=== PATIENT | female | born 1980 | race Hispanic/Latino ===

== ENCOUNTER 2022-06-19 09:04 | Day surgery (SDC) | payer SELFPAY ==
[2022-06-19] MEDS ORDERED: Acetaminophen 500 MG TAB ONE (09:29)
[2022-06-19] MEDS ORDERED: Acetaminophen 500 MG TAB PO SCH (09:30)
[2022-06-19] MEDS ORDERED: Iron Sucrose Complex 500 MG in Sodium Chloride 0.9% 250 ML 250 ML IVPB SCH (09:30)
== END 2022-06-19 14:05 | disposition home or self-care (01) ==
LOC: CSHSDC/OP 09:04
PROVIDERS: ATTEND Family Medicine
DX: O99.019 Anemia complicating pregnancy, unspecified trimester (principal); D64.9 Anemia, unspecified
CPT/HCPCS: J1756; J7050

== ENCOUNTER 2022-07-04 16:51 | Inpatient (IN) | payer MEDICAID, SELFPAY ==
[2022-07-04] MEDS ORDERED: Diphenoxylate HCl/Atropine Tablet PO PRN (17:09)
[2022-07-04] MEDS ORDERED: Methylergonovine 0.2 MG/ML VIAL IM PRN (17:09)
[2022-07-04] MEDS ORDERED: Misoprostol 200 MCG TAB PR PRN (17:09)
[2022-07-04] MEDS ORDERED: Lorazepam 2 MG/ML VIAL SLOW IVP PRN (17:09)
[2022-07-04] MEDS ORDERED: Ondansetron PF 4 MG/2 ML Vial IVP PRN (17:09)
[2022-07-04] MEDS ORDERED: Promethazine HCl 25 MG/ML VIAL IM PRN (17:09)
[2022-07-04] MEDS ORDERED: Carboprost 250 MCG/ML AMP IM PRN (17:09)
[2022-07-04] MEDS ORDERED: hydrALAZINE 20 MG/ML VIAL SLOW IVP PRN ×2 (17:09→17:15)
[2022-07-04] MEDS ORDERED: Famotidine/PF 20 mg/2ml Vial SLOW IVP PRN (17:09)
[2022-07-04] MEDS ORDERED: Calcium Gluc 4.6 MEQ/10 ML (100 MG/ML) SLOW IVP PRN (17:09)
[2022-07-04] MEDS ORDERED: Bicitra 30 ML UDCUP PO PRN (17:09)
[2022-07-04] MEDS ORDERED: Tranexamic Acid 1,000 MG in Sodium Chloride 0.9% 250 ML 250 ML IVPB PRN (17:09)
[2022-07-04] MEDS ORDERED: Labetalol HCl 100 MG/20 ML VIAL SLOW IVP PRN (17:15)
[2022-07-04] MEDS ORDERED: NS w/ Oxytocin 30 units 500 ML IV SCH (17:15)
[2022-07-04] MEDS ORDERED: Magnesium Sulfate 20 gm/500 ml 20 GM/500 ML BAG IVPB SCH (17:15)
[2022-07-04] MEDS ORDERED: Lactated Ringer's 1,000 ML IV SCH (17:15)
[2022-07-04] MEDS ORDERED: CEFAZOLIN 2 GM in Sodium Chloride 0.9% 100 ML IVPB SCH (17:15)
[2022-07-04] MEDS ORDERED: Tranexamic Acid 1,000 MG/10 ML VIAL IVP PRN (17:24)
[2022-07-04] MEDS ORDERED: Magnesium Sulfate 20 gm/500 ml 20 GM/500 ML BAG ONE (17:59)
[2022-07-04] MEDS ORDERED: hydrALAZINE 20 MG/ML VIAL ONE (18:00)
[2022-07-04 18:10] VITALS: BMI 37.9
[2022-07-04 19:12] LABS: #Monocytes 0.4 10x3/uL (0.0-1.1); #Neutrophils 5.6 10x3/uL (1.5-8.4); %Basophils 0.4 % (0.0-2.0); %Eosinophils 0.5 % (0.0-6.0); %Lymphocytes 18.6 % (18.0-47.0); %Monocytes 5.9 % (0.0-10.0); %Neutrophils 74.5 % (40.0-75.0); Hemoglobin 11.1 g/dL (12.0-15.5); Mean Corpuscular HGB CONC 32.6 g/dL (32.0-36.0); Mean Corpuscular Hemoglobin 28.6 pg (27.0-33.0); Mean Corpuscular Volume 87.6 fl (81.6-98.3); Mean Platelet Volume 12.8 fl (7.4-10.4); Platelet Count 225 10x3/uL (150-450); RBC Distribution Width 16.8 % (11.5-14.5); Red Blood Cell (RBC) Count 3.88 10x6/uL (3.90-5.03); White Blood Cell (WBC) Count 7.5 10x3/uL (3.5-10.5)
[2022-07-04 19:26] LABS: ALT (SGPT) 9 U/L (8-55); AST (SGOT) 17 U/L (5-34); Albumin 3.6 g/dL (3.5-5.0); Alkaline Phosphatase 107 U/L (40-110); Anion Gap 17 mmol/L (10-20); BUN (Urea Nitrogen) 8 mg/dL (7.0-18.7); Bilirubin, Total 0.4 mg/dL (0.2-1.2); Calc. Creatinine Clearance 210 mL/min (70-130); Calcium 8.9 mg/dL (7.8-10.44); Carbon Dioxide 21 mmol/L (22-29); Chloride 105 mmol/L (98-107); Estimated GFR 118; Globulin 3.5 g/dL (2.4-3.5); Glucose 77 mg/dL (70-105); Potassium 3.6 mmol/L (3.5-5.1); Protein, Total 7.1 g/dL (6.0-8.3); Sodium 139 mmol/L (136-145)
[2022-07-04 19:44] LABS: HBSAg Index 0.21 S/CO (0-0.99); Hep B Surf Ag Non-Reactive S/CO (NonReactive)
[2022-07-04 19:45] LABS: Syphilis Antibody Nonreactive (Nonreactive); Syphilis Antibody Index 0.08 S/CO (<1.00 Non-Reactive)
[2022-07-04] MEDS ORDERED: PHENYLEPHRINE-NS 100 MCG/ML 10 ML SYRINGE ONE (20:06)
[2022-07-04] MEDS ORDERED: Ondansetron PF 4 MG/2 ML Vial ONE (20:06)
[2022-07-04] MEDS ORDERED: Oxytocin 10 UNITS/ML VIAL ONE (20:06)
[2022-07-04] MEDS ORDERED: Morphine PF 10 MG/10 ML VIAL ONE (20:06)
[2022-07-04] MEDS ORDERED: Dexamethasone 4 mg/ml Vial ONE (20:06)
[2022-07-04] MEDS ORDERED: Phenylephrine 40 MG/NS 250 ML 250 ML ONE (20:36)
[2022-07-04] MEDS ORDERED: Ketorolac Tromethamine 30 MG/ML VIAL ONE (20:56)
[2022-07-04 21:24] LABS: pH (Cord, venous) 7.344 (7.250-7.350)
[2022-07-05] MEDS ORDERED: Lanolin Ointment 7 GM TUBE TOP PRN (08:24)
[2022-07-05] MEDS ORDERED: Magnesium Sulfate 20 gm/500 ml 20 GM/500 ML BAG IVPB SCH (08:24)
[2022-07-05] MEDS ORDERED: Lorazepam 2 MG/ML VIAL SLOW IVP PRN (08:24)
[2022-07-05] MEDS ORDERED: Simethicone Chewable 80 MG TAB PO PRN (08:24)
[2022-07-05] MEDS ORDERED: hydrALAZINE 20 MG/ML VIAL SLOW IVP PRN (08:24)
[2022-07-05] MEDS ORDERED: Calcium Gluc 4.6 MEQ/10 ML (100 MG/ML) SLOW IVP PRN (08:24)
[2022-07-05] MEDS ORDERED: Magnesium Sulfate 20 gm/500 ml 4 GM/100 ML BAG IVPB SCH (08:45)
[2022-07-05] MEDS: Ibuprofen 800 MG TAB PO SCH ×2 (12:59→21:05)
[2022-07-05] MEDS: HYDROcodone/Acetaminophen 5/325 mg Tablet PO PRN (19:24)
[2022-07-05] MEDS: Ferrous Sulfate 325 MG TAB PO SCH (20:30)
[2022-07-05] MEDS: Docusate 100 MG CAP PO SCH (21:05)
[2022-07-06] MEDS: Ibuprofen 800 MG TAB PO SCH ×3 (05:07→21:31)
[2022-07-06 05:19] LABS: Hemoglobin 9.2 g/dL (12.0-15.5); Mean Corpuscular HGB CONC 32.3 g/dL (32.0-36.0); Mean Corpuscular Hemoglobin 28.4 pg (27.0-33.0); Mean Platelet Volume 11.7 fl (7.4-10.4); Platelet Count 199 10x3/uL (150-450); RBC Distribution Width 16.8 % (11.5-14.5); Red Blood Cell (RBC) Count 3.24 10x6/uL (3.90-5.03)
[2022-07-06] MEDS ORDERED: Boostrix 0.5 ML (Tdap) VIAL (>/=7 yrs of age) IM ONE (08:24)
[2022-07-06] MEDS: Docusate 100 MG CAP PO SCH ×3 (08:40→21:31)
[2022-07-06] MEDS: Ferrous Sulfate 325 MG TAB PO SCH ×3 (08:40→21:31)
[2022-07-06] MEDS: Prenatal Vitamin 1 TAB PO SCH ×2 (08:40→19:07)
[2022-07-06] MEDS: HYDROcodone/Acetaminophen 5/325 mg Tablet PO PRN (16:42)
[2022-07-07] MEDS: Ibuprofen 800 MG TAB PO SCH (05:44)
[2022-07-07 08:00] VITALS: BP 129/59; TEMP 98.6
[2022-07-07] MEDS: Ferrous Sulfate 325 MG TAB PO SCH (08:26)
[2022-07-07] MEDS: Docusate 100 MG CAP PO SCH (08:26)
[2022-07-07] MEDS: Prenatal Vitamin 1 TAB PO SCH (08:26)
[2022-07-07] MEDS: HYDROcodone/Acetaminophen 5/325 mg Tablet PO PRN (10:34)
== END 2022-07-07 12:25 | disposition home or self-care (01) | DRG 787 ==
LOC: CSHLD/OP 16:51 → CSHLD 19:03 → CSHPP 07-05 21:58
PROVIDERS: ADMIT Obstetrics & Gynecology; ATTEND Obstetrics & Gynecology
PROC: 10D00Z1 Extraction of Products of Conception, Low, Open Approach (ICD-10-PCS; principal; 2022-07-05)
DX: O14.14 Severe pre-eclampsia complicating childbirth (principal); D62 Acute posthemorrhagic anemia; O34.211 Maternal care for low transverse scar from previous cesarean delivery; O60.14X0 Preterm labor third trimester with preterm delivery third trimester, not applicable or unspecified; O99.214 Obesity complicating childbirth; E66.9 Obesity, unspecified; O34.03 Maternal care for unspecified congenital malformation of uterus, third trimester; Q51.3 Bicornate uterus; Z3A.36 36 weeks gestation of pregnancy; Z37.0 Single live birth; O99.824 Streptococcus B carrier state complicating childbirth; Z79.899 Other long term (current) drug therapy; O90.81 Anemia of the puerperium
CPT/HCPCS: 36415; 51702; 80053; 82570; 82805; 84156; 85025; 85027; 86780; 86850; 86900; 86901; 87340; 88307; 99285; J0360; J1100; J1885; J2274; J2405; J2590; J3475

== ENCOUNTER 2025-03-15 13:47 | Outpatient (CLI) | payer SELFPAY ==
[2025-03-15 15:08] LABS: BHCG - Serum Negative (NEGATIVE); Pregs Control Background? CLEAR/WHITE (CLR/WHITE); Pregs Control Bar Appear? YES (CONTROL BAR)
[2025-03-15 15:15] LABS: ALT (SGPT) 14 U/L (Less than 34); AST (SGOT) 18 U/L (11-34); Albumin 4.1 g/dL (3.1-4.5); Alkaline Phosphatase 91 U/L (40-110); Anion Gap 10 mmol/L (10-20); BUN (Urea Nitrogen) 14 mg/dL (7.0-18.7); Bilirubin, Direct 0.2 mg/dL (0.1-0.3); Bilirubin, Total 0.5 mg/dL (0.3-1.2); Calc. Creatinine Clearance 0 mL/min (70-130); Calcium 8.9 mg/dL (7.8-10.44); Carbon Dioxide 27 mmol/L (22-29); Chloride 105 mmol/L (98-107); Glucose 108 mg/dL (70-105); Potassium 3.8 mmol/L (3.5-5.1); Sodium 138 mmol/L (136-145)
[2025-03-15 15:34] LABS: #Basophils 0.04 10x3/uL (0.0-0.2); #Eosinophils 0.22 10x3/uL (0.0-0.5); #Monocytes 0.33 10x3/uL (0.0-1.1); #Neutrophils 3.84 10x3/uL (1.5-8.4); %Basophils 0.7 % (0.0-2.0); %Eosinophils 3.6 % (0.0-6.0); %Lymphocytes 27.6 % (18.0-47.0); %Monocytes 5.4 % (0.0-10.0); %Neutrophils 62.4 % (40.0-75.0); Hematocrit 27.7 % (34.9-44.5); Hemoglobin 7.6 g/dL (12.0-15.5); Mean Corpuscular Hemoglobin 19.8 pg (27.0-33.0); Mean Corpuscular Volume 72.3 fL (81.6-98.3); Platelet Count 341 10x3/uL (150-450); Red Blood Cell (RBC) Count 3.83 10x6/uL (3.90-5.03); White Blood Cell (WBC) Count 6.15 10x3/uL (3.5-10.5)
== END 2025-03-15 13:48 | disposition home or self-care (01) ==
LOC: CSHLAB 13:47
PROVIDERS: ATTEND Surgery
DX: Z01.812 Encounter for preprocedural laboratory examination (principal); K81.0 Acute cholecystitis
CPT/HCPCS: 80048; 80076; 84703; 85025

== ENCOUNTER 2025-03-18 07:57 | Day surgery (SDC) | payer OTHER, SELFPAY ==
[2025-03-15 14:34] VITALS: BMI 32.1
[2025-03-18] MEDS ORDERED: PROPOFOL 20 ML ONE (09:27)
[2025-03-18] MEDS ORDERED: Lidocaine 1% PF 5 ML VIAL ONE (09:28)
[2025-03-18] MEDS ORDERED: Rocuronium Bromide 10 MG/ML (10ML VIAL) ONE ×2 (09:28)
[2025-03-18] MEDS ORDERED: CEFAZOLIN 2 GM VIAL ONE (09:32)
[2025-03-18] MEDS ORDERED: Bupivacaine/Epinephrine 0.25% 30 ML VIAL ONE (09:32)
[2025-03-18] MEDS ORDERED: SUGAMMADEX SODIUM 200 MG/2 ML VIAL ONE (10:48)
[2025-03-18] MEDS ORDERED: Ondansetron PF 4 MG/2 ML Vial ONE ×2 (10:48→11:56)
[2025-03-18] MEDS ORDERED: Ketorolac Tromethamine 30 MG (1 mL) VIAL ONE (11:08)
[2025-03-18] MEDS ORDERED: oxyCODONE 5 MG TAB ONE (13:36)
== END 2025-03-18 13:55 | disposition home or self-care (01) ==
LOC: CSHSDC 07:57
PROVIDERS: ATTEND Surgery
PROC: 0FT44ZZ Resection of Gallbladder, Percutaneous Endoscopic Approach (ICD-10-PCS; principal; 2025-03-18)
DX: K80.12 Calculus of gallbladder with acute and chronic cholecystitis without obstruction (principal); Z87.59 Personal history of other complications of pregnancy, childbirth and the puerperium
CPT/HCPCS: 47562; C9776; 36415; 86850; 86900; 86901; 88304; C1889; J1100; J1885; J2405; J2704; J3010; S2900